=== PATIENT | female | born 1935 | race Caucasian/White ===

== ENCOUNTER → 2018-12-10 | Outpatient (CLI) | payer OTHER ==
[~2018-12-10] MED LIST: ACETAMINOPHEN325 M1 PO; ASPIR 8181 MG PO; AUGMENTIN 875-1 EACH PO; BENTYL 10 MG CA10 M1 PO; CEFUROXIME250 MG PO; COLACE100 MG PO; COLESTID1 GM PO; ENTOCORT EC 3 MG3 MG PO; INDAPAMIDE2.5 MG PO; KLOR-CON 1010 MEQ PO; NORCO 5-325 TA1 EACH PO; TEGRETOL XR100 MG PO
== END ==
LOC: M.ULTRA 10:51
DX: R22.42 Localized swelling, mass and lump, left lower limb (principal)

== ENCOUNTER → 2021-03-06 | Outpatient (CLI) | payer OTHER | LOC: M.RAD 09:37 | PROVIDERS: ATTEND Family Medicine | DX: M85.88 Other specified disorders of bone density and structure, other site (principal); M81.0 Age-related osteoporosis without current pathological fracture ==